=== PATIENT | female | born 1955 | race Caucasian/White ===

== ENCOUNTER 2017-11-15 12:16 | Emergency (ER) | payer SELFPAY ==
[~2017-11-15] VITALS: Ht 152.4 cm; Wt 73.0 kg
[2017-11-15] MEDS ORDERED: ONDANSETRON HCL 4MG/2ML VIAL IV STA (12:28)
[2017-11-15] MEDS ORDERED: MORPHINE SULFATE 4 MG/ML CPJ (NOT FOR IM USE) IV STA (12:28)
[2017-11-15] MEDS ORDERED: FAMOTIDINE 20MG/2ML VIAL IV STA (12:28)
[2017-11-15 13:09] LABS: BASOPHILS % 0.2 % (0.0-2.0); EOSINOPHILS % 1.2 % (0.0-5.0); HEMATOCRIT. 34.1 % (36.0-48.0); HEMOGLOBIN. 11.4 g/dL (12.0-16.0); LYMPHOCYTES % 25.2 % (20.0-50.0); MEAN CORPUSCULAR HEMOGLOBIN 28.1 pg (28.0-32.0); MEAN CORPUSCULAR VOLUME 84.2 fL (81.0-99.0); MEAN PLATELET VOLUME 8.8 fl (7.4-10.4); MONOCYTES % 4.7 % (2.0-8.0); NEUTROPHILS % 68.7 % (40.0-76.0); PLATELET 170 x1000/uL (130-400); RED BLOOD CELL COUNT 4.05 mill/uL (4.2-5.4); RED CELL DISTRIBUTION WIDTH 15.5 % (11.6-14.6)
[2017-11-15 13:14] LABS: CHLORIDE 106 mEq/L (98-107)
[2017-11-15 15:06] LABS: CLARITY URINE CLEAR (CLEAR); COLOR URINE YELLOW (YELLOW); KETONES URINE NEGATIVE (NEGATIVE); LEUKOCYTE ESTERASE URINE NEGATIVE (NEGATIVE); NITRITE URINE NEGATIVE (NEGATIVE); OCCULT BLOOD URINE NEGATIVE (NEGATIVE); PH URINE 7.5 (4.5-8.0); PROTEIN URINE TRACE (NEGATIVE); SPECIFIC GRAVITY URINE 1.022 (1.005-1.030)
[2017-11-15] MEDS ORDERED: VISCOUS LIDOCAINE 2% 15 ML UDC MM ONE (16:15)
[2017-11-15] MEDS ORDERED: SODIUM CHLORIDE 0.9% 1,000 ML IV ONE (16:15)
[2017-11-15] MEDS ORDERED: MAGNESIUM/ALUMINUM HYDROXIDE/SIMETHICONE 30ML UDC PO ONE (16:15)
[2017-11-15] MEDS ORDERED: LORAZEPAM 2MG/ML CPJ IV ONE (16:15)
[2017-11-15 18:59] VITALS: BP 129/74
== END 2017-11-15 19:00 | disposition home or self-care (01) ==
LOC: ER 13:04
DX: F41.9 Anxiety disorder, unspecified (principal); K29.00 Acute gastritis without bleeding; I11.9 Hypertensive heart disease without heart failure; K27.9 Peptic ulcer, site unspecified, unspecified as acute or chronic, without hemorrhage or perforation; Z86.73 Personal history of transient ischemic attack (TIA), and cerebral infarction without residual deficits; D64.9 Anemia, unspecified
CPT/HCPCS: 36415; 74176; 80053; 81003; 83690; 85025; 93005; 96361; 96374; 96375; 99285; J2060; J2270; J2405; J3490; J7030; Z7610